=== PATIENT | male | born 1945 | race Caucasian/White ===

== ENCOUNTER → 2016-05-12 | Outpatient (CLI) | payer MEDICARE | END | disposition home or self-care (01) | LOC: GMAJ 10:53 | PROVIDERS: ATTEND Family Medicine | DX: Z12.5 Encounter for screening for malignant neoplasm of prostate (principal) ==

== ENCOUNTER → 2016-05-20 | Outpatient (CLI) | payer MEDICARE ==
--- NOTE | 2016-05-21 09:56 | RAD ---
EXAM DESCRIPTION: Hip,Right 2 Views CLINICAL HISTORY: 71 yearsMale, HIP PAIN COMPARISON: November 04 2015 IMPRESSION: Plate and screws traversing a healed acetabular fracture. 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 No evidence of fracture. No evidence of hardware failure or osteolysis. No joint space loss of the right hip. Electronically signed by: Jalen Law MD 05/21/2016 9:55 AM CRITICAL POWER TECHNICIAN
--- NOTE | 2016-05-21 10:00 | US ---
Aortic ultrasound HISTORY: Tobacco dependence, aneurysm screening TECHNIQUE: Grayscale and color Doppler imaging of the aorta was performed. Static images were saved to the patient's medical record. FINDINGS: The proximal abdominal aorta measures 2.5 x 2.5 cm, the mid abdominal aorta measures 2.1 x 2.1 cm and the distal abdominal aorta measures 2.2 x 2.5 cm. The right iliac artery measures 1.4 cm in diameter and the left measures 1.4 cm in diameter. 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 Yearly screening is suggested. Electronically signed by: Jalen Law MD 05/21/2016 9:59 AM MEDICAL FIELD REPRESENTATIVE
--- NOTE | 2016-05-25 00:42 | RAD ---
EXAM DESCRIPTION: Hip,Right 2 Views CLINICAL HISTORY: 71 yearsMale, HIP PAIN COMPARISON: November 04 2015 IMPRESSION: Plate and screws traversing a healed acetabular fracture. 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 No evidence of fracture. No evidence of hardware failure or osteolysis. No joint space loss of the right hip. Electronically signed by: Jalen Law MD 05/21/2016 9:55 AM CALCINER FEEDER
--- NOTE | 2016-05-25 00:42 | RAD ---
EXAM DESCRIPTION: Pelvis CLINICAL HISTORY: 71 yearsMale, HIP PAIN COMPARISON: November 04, 2015 IMPRESSION: Three views of the pelvis demonstrate an intact pelvic ring. Symmetrical normal joint spaces of bilateral hips. ORIF of an old right acetabular fracture. Degenerative change of the pubic symphysis is noted. Bilateral sacroiliac joints demonstrate mild degenerative change. The lower lumbar spine is unremarkable. Electronically signed by: Jalen Law MD 05/21/2016 9:57 AM CONTAINERS SALES REPRESENTATIVE
== END | disposition home or self-care (01) ==
LOC: RAD 09:39
PROVIDERS: ATTEND Family Medicine
DX: I25.10 Atherosclerotic heart disease of native coronary artery without angina pectoris (principal); M25.551 Pain in right hip

== ENCOUNTER → 2018-10-13 | Outpatient (CLI) | payer MEDICARE ==
--- NOTE | 2018-10-13 08:16 | RAD ---
EXAM DESCRIPTION: Pelvis CLINICAL HISTORY: 73 years Male, M25.551,M25.552 COMPARISON: None. FINDINGS: Plate and screws in the right pelvis. A large osteophyte or traumatic deformity causes lateral projection of the right acetabular margin. Surgical clips in the right groin. Multiple benign-appearing vascular calcifications. No acute fracture or destructive lesion of the bones of the pelvic ring. Sacrum appears intact. Mild degenerative changes in the lower L-spine. Left hip appears intact. Enthesopathy of the lesser trochanter of the proximal right femur. IMPRESSION: Orthopedic hardware in the right acetabular region. Electronically signed by: Billy Mancini MD 10/13/2018 8:14 AM CDT
--- NOTE | 2018-10-13 08:18 | RAD ---
EXAM DESCRIPTION: Hip Bilateral CLINICAL HISTORY: 73 years, Male, M25.551,M25.552 COMPARISON: None TECHNIQUE: AP and frog leg lateral views of the right hip. AP and frog-leg lateral views of the left hip. FINDINGS: Right 2 views of the right hip reveal orthopedic hardware in the right acetabular region. Large spur or healed fragment of the lateral aspect of the right acetabular margin extends laterally. Enthesopathy at the lesser trochanter of the proximal right femur. No hip dislocation or femoral fracture. Bones of the pelvic ring appear intact.. No lytic bone lesion. Narrowed appearance of the superior joint space. Left Two views of the left hip reveal normal joint space. No fracture or dislocation. Bones of the left hemipelvis appear intact. Mild enthesopathy at the greater trochanter. IMPRESSION: No acute fracture or dislocation. Orthopedic hardware in the right pelvis. Electronically signed by: Billy Mancini MD 10/13/2018 8:16 AM CDT
== END ==
LOC: RAD 07:35
PROVIDERS: ATTEND Orthopaedic Surgery
DX: M25.551 Pain in right hip (principal); M25.552 Pain in left hip; Z98.890 Other specified postprocedural states

== ENCOUNTER 2019-02-03 13:43 | Emergency (ER) | payer MEDICARE ==
[2019-02-03] MEDS ORDERED: IPRATROPIUM/ALBUTEROL 3 ML VIAL NEB ONE (13:50)
[2019-02-03] MEDS ORDERED: MIDAZOLAM INJ 5 MG/5 ML VIAL ONE (13:52)
[2019-02-03] MEDS ORDERED: cefTRIAXone SODIUM 1 GM in SODIUM CHL 0.9% 50ML MIN-BAG+ 50 ML IVPB ONE (14:01)
[2019-02-03] MEDS ORDERED: methylPREDNISolone SODIUM SUC 125 MG/2 ML VIAL IV ONE (14:14)
--- NOTE | 2019-02-03 14:14 | ED.PDOC ---
History of Present Illness - General Time Seen by Provider: 02/03/19 13:48 Source: family, EMS Exam Limitations: clinical condition - History of Present Illness Initial Comments: the patient is a 73-year-old male presenting to emergency room after having been intubated and coded by EMS. EMS was called out for shortness of breath. The patient apparently does have COPD and does smoke significantly. He has had significant cardiac issues in the past but his clinical support nurse is in [place]. His son does not know his medications or any detailed cardiac history. Apparently upon arrival with EMS the patient failed to respond with supplemental oxygen and CPAP. During intubation with a lost a blood pressure the patient became bradycardic until the pulse was not detectable. The patient was given atropine and epinephrine. CPR was started. After 7 minutes of CPR return of circulation occurred. THE PATIENT ARRIVES HERE HE IS INTUBATED. oxygen SATURATIONS ARE 100% ON CURRENT BAGGING. THE PATIENT IS UNRESPONSIVE AT THIS POINT. HE DID HAVE Versed WELL SUCCINYLCHOLINE FOR THE INTUBATION. lungs are very tight. Scattered wheezes. Timing/Duration: other - 2 days of shortness of breath Severity: severe Allergies/Adverse Reactions: Allergies NO KNOWN ALLERGY Allergy (Verified 02/03/19 14:32) Review of Systems - Review of Systems Unable to Obtain Due To: condition, intubated Family Medical History - Family History Mother Family History: Unknown Living Status: Unknown Physical Exam - Physical Exam General Appearance: Other - the patient is unresponsive. He is intubated. Ears, Nose, Throat: normal pharynx, other - intubated to 25 cm at the fixator Neck: full range of motion - no evidence of obvious neck trauma. Respiratory: decreased breath sounds, wheezing, other - no respiratory drive due to medications. The patient is intubated and on a ventilator. Cardiovascular/Chest: normal peripheral pulses, no edema, other - sinus tachycardia on the monitor Peripheral Pulses: radial,right: 2+, radial,left: 2+ Gastrointestinal/Abdominal: non tender, soft Rectal Exam: deferred Extremity: normal range of motion, normal capillary refill, other - trace edema. Neurologic: other - largely unable to perform neurologic exam due to medications and intubated state. Skin Exam: pallor Progress - Progress Progress: 02/03/19 14:18 the patient is a 73-year-old male presenting to emergency room after cardiorespiratory arrest in the field. The patient had rapid sequence intubation after which the blood pressure and pulse were lost. The patient underwent CPR for 7 minutes. he did receive atropine and epinephrine. Vital signs appear to have stabilized largely at this point. No previous EKG is present to compare to. The patient does have numerous changes that may or may not indicate ischemia. I did discuss the patient with Dr. Lua, and lytics were decided against. The patient will be placed on a heparin drip. The patient is receiving Rocephin for the COPD exacerbation and possible aspiration. He is also receiving Solu-Medrol for COPD exacerbation and stress dosing. Blood culture has been done. We will keep the patient intubated and at rest for now. The patient will be transferred for higher level of care and cardiac evaluation. 02/03/19 14:51 the troponin is still not returned at the time of transfer. His CMP just came back the patient does have some significant hypoglycemia. This may be a stress reaction or reaction from the epinephrine. He is going to receive 4 units of IV insulin. this is also likely being made worse from the Solu-Medrol for his COPD. Labs will be forwarded as they return. BNP is markedly elevated. final read on chest x-ray is still pending. there are scattered infiltrates. Lungs do appear to be grossly inflated. Tip of the ET tube appears to be positioned appropriately. critical care time spent 45 minutes linda lancaster 617 - Results/Orders Results/Orders: eKG shows a significant conduction delay. There are inverted T waves in inferior and lateral leads. Questionable ST elevation in anterior leads but likely due to the conduction delay. Sinus tachycardia 125 bpm. No previous EKG to compare to. Laboratory Tests 02/03/19 02/03/19 02/03/19 14:04 14:04 14:04 WBC 12.1 H RBC 3.93 L Hgb 13.0 L Hct 40.4 L MCV 102.8 H MCH 33.2 H MCHC 32.3 L RDW 13.3 Plt Count 275 MPV 8.0 Absolute Neuts (auto) 7.90 H Absolute Lymphs (auto) 3.20 Absolute Monos (auto) 0.90 H Absolute Eos (auto) 0.10 Absolute Basos (auto) 0.10 Neutrophils % 65.3 Lymphocytes % 26.6 Monocytes % 7.2 Eosinophils % 0.4 L Basophils % 0.5 Sodium 134 L Potassium 3.9 Chloride 100 L Carbon Dioxide 18 L Anion Gap 19.9 H BUN 20 H Creatinine 1.42 H BUN/Creatinine Ratio 14.1 Random Glucose 388 H Serum Osmolality 286.9 Lactic Acid Calcium 8.7 Magnesium 2.3 Total Bilirubin 1.0 AST 62 H ALT 37 Alkaline Phosphatase 97 Creatine Kinase 59 B-Natriuretic Peptide 1030.0 H* Serum Total Protein 6.4 Albumin 3.0 L Globulin 3.4 Albumin/Globulin Ratio 0.9 L 02/03/19 14:04 WBC RBC Hgb Hct MCV MCH MCHC RDW Plt Count MPV Absolute Neuts (auto) Absolute Lymphs (auto) Absolute Monos (auto) Absolute Eos (auto) Absolute Basos (auto) Neutrophils % Lymphocytes % Monocytes % Eosinophils % Basophils % Sodium Potassium Chloride Carbon Dioxide Anion Gap BUN Creatinine BUN/Creatinine Ratio Random Glucose Serum Osmolality Lactic Acid 6.2 H* Calcium Magnesium Total Bilirubin AST ALT Alkaline Phosphatase Creatine Kinase B-Natriuretic Peptide Serum Total Protein Albumin Globulin Albumin/Globulin Ratio troponin is still pending at the time of transfer. Departure - Departure Clinical Impression: Respiratory arrest before cardiac arrest, COPD with exacerbation Aspiration into airway Qualifiers: Encounter type: initial encounter Qualified Code(s): T17.908A - Unspecified foreign body in respiratory tract, part unspecified causing other injury, initial encounter Disposition: Transfer to Hospital Condition: Serious Referrals: Tio Lancaster MD [Primary Care Provider] - 1-2 Weeks Transfer to Outside Facility - Transfer Information Decision to Transfer Date: 02/03/19 Decision to Transfer Time: 14:10 Reason for Transfer: required specialist not available Accepting Provider:: dr udnham/ christos Accepting Facility: [facility]
[2019-02-03] MEDS ORDERED: cefTRIAXone SODIUM 1 GM VIAL ONE (14:19)
[2019-02-03] MEDS ORDERED: SODIUM CHL 0.9% 50ML MIN-BAG+ 50 ML IVPB ONE (14:19)
[2019-02-03] MEDS ORDERED: HEPARIN SODIUM (PORCINE) 5,000 U/ML VIAL IV ONE (14:25)
[2019-02-03] MEDS ORDERED: MIDAZOLAM INJ 5 MG/5 ML VIAL IV ONE (14:30)
[2019-02-03] MEDS ORDERED: HEPARIN PREMIX 25,000 UNITS in PREMIX BAG 1 BAG IVS SCH (14:30)
[2019-02-03] MEDS ORDERED: HEPARIN PREMIX 500 ML ONE (14:32)
[2019-02-03 14:35] VITALS: BP 153/127; TEMP 96.9; O2SAT 100
[2019-02-03] MEDS ORDERED: INSULIN, REG.(HUMAN) 100 U/ML VIAL IV ONE (14:51)
--- NOTE | 2019-02-03 15:24 | RAD ---
EXAM DESCRIPTION: Chest,1 View CLINICAL HISTORY: 73 years Male, s/p arrest COMPARISON: None available. TECHNIQUE: AP radiograph of the chest was obtained. FINDINGS: Trachea is midline.The cardiomediastinal silhouette is moderately enlarged in size. Bilateral perihilar congestion is noted. Airspace opacities in the bilateral upper lobes could represent pulmonary edema.No evidence of pleural effusions. IMPRESSION: Moderately enlarged cardiac silhouette with pulmonary vascular congestion. Airspace opacities in the bilateral upper lobes could represent pulmonary edema. Electronically signed by: Natalia Patel MD 02/03/2019 3:22 PM [facility]
== END 2019-02-03 15:00 | disposition short-term general hospital (02) ==
LOC: ER 13:43
DX: R09.2 Respiratory arrest (principal); I46.9 Cardiac arrest, cause unspecified; J44.1 Chronic obstructive pulmonary disease with (acute) exacerbation; T17.908A Unspecified foreign body in respiratory tract, part unspecified causing other injury, initial encounter; R00.0 Tachycardia, unspecified; I51.9 Heart disease, unspecified; F17.200 Nicotine dependence, unspecified, uncomplicated
CPT/HCPCS: 36415; 71045; 80053; 82550; 82553; 83605; 83735; 83880; 84484; 85025; 85610; 85730; 87040; 93005; 94002; 94770; J0696; J1644; J2250; J2930; J7050; J7620